=== PATIENT | female | born 1990 | race Caucasian/White ===

== ENCOUNTER 2023-09-25 14:17 | Emergency (ER) | payer OTHER ==
[2023-09-25 14:29] VITALS: BP 136/79; PULSE 106; RESP 18; TEMP 98; BMI 34.7
[2023-09-25 16:03] LABS: BASO % 0.3 % (0-2.0); EOS % 3.8 % (0-4.5); HEMATOCRIT 38.2 % (32.4-45.2); HEMOGLOBIN 12.8 GM/dL (10.7-15.3); LYMPH % 18.7 % (8-40); MCH 29.6 pg (25.7-33.7); MCHC 33.4 g/dl (32.0-36.0); MEAN CELL VOLUME 88.5 fl (80-96); MEAN PLT VOLUME 7.5 fl (7.5-11.1); MONO % 6.8 % (3.8-10.2); NEUT % 70.4 % (42.8-82.8); PH,URINE 6.5 (5.0-8.0); PLATELET COUNT 332 10^3/uL (134-434); RBC 4.32 M/mm3 (3.60-5.2); RDW 13.2 % (11.6-15.6); URINE APPEARANCE CLEAR; URINE BILIRUBIN NEGATIVE (NEGATIVE); URINE COLOR YELLOW; URINE GLUCOSE (UA) 3+ (NEGATIVE); URINE KETONE TRACE (NEGATIVE); URINE LEUK ESTERASE NEGATIVE (NEGATIVE); URINE NITRITE NEGATIVE (NEGATIVE); URINE PROTEIN NEGATIVE (NEGATIVE); WHITE BLOOD COUNT 11.7 K/mm3 (4.0-10.0)
[2023-09-25 16:15] LABS: POTASSIUM 4.1 mmol/L (3.5-5.1)
[2023-09-25 16:18] LABS: CALCIUM 8.7 mg/dL (8.5-10.1)
[2023-09-25 16:19] LABS: ALBUMIN 3.2 g/dl (3.4-5.0); BLOOD UREA NITROGEN 9.3 mg/dL (7-18)
[2023-09-25 16:22] LABS: CREATININE 0.9 mg/dL (0.55-1.3)
[2023-09-25 16:24] LABS: BILIRUBIN,TOTAL 0.2 mg/dL (0.2-1); TOT PROT 6.9 g/dl (6.4-8.2)
[2023-09-25] MEDS: SODIUM CHLORIDE 0.9% 500 ML INFUS.BAG IV ONE (16:52)
== END 2023-09-25 17:25 | disposition home or self-care (01) ==
LOC: JER 14:17
DX: O46.92 Antepartum hemorrhage, unspecified, second trimester (principal); Z3A.20 20 weeks gestation of pregnancy
CPT/HCPCS: 36415; 76815-TC; 80053; 81003; 84702; 85025; 86850; 86900; 86901; 87086; 99284-25

== ENCOUNTER 2024-01-22 15:55 | Inpatient (IN) | payer OTHER ==
[2024-01-22 16:42] LABS: BASO % 0.7 % (0-2.0); EOS % 1.9 % (0-4.5); HEMATOCRIT 38.6 % (32.4-45.2); HEMOGLOBIN 13.1 GM/dL (10.7-15.3); LYMPH % 27.1 % (8-40); MCH 30.6 pg (25.7-33.7); MCHC 33.9 g/dl (32.0-36.0); MEAN CELL VOLUME 90.3 fl (80-96); MEAN PLT VOLUME 8.8 fl (7.5-11.1); MONO % 9.5 % (3.8-10.2); NEUT % 60.8 % (42.8-82.8); PLATELET COUNT 191 10^3/uL (134-434); RBC 4.27 M/mm3 (3.60-5.2); RDW 13.6 % (11.6-15.6)
[2024-01-22 16:50] LABS: INR 0.97 (0.83-1.09)
[2024-01-22 16:53] LABS: ACTIVATED PTT 28.5 SECONDS (25.2-36.5)
[2024-01-22 17:11] LABS: ALBUMIN 2.6 g/dl (3.4-5.0); CALCIUM 8.5 mg/dL (8.5-10.1)
[2024-01-22 17:12] LABS: BLOOD UREA NITROGEN 14.3 mg/dL (7-18)
[2024-01-22 17:15] LABS: CREATININE 0.9 mg/dL (0.55-1.3)
[2024-01-22 17:16] LABS: TOT PROT 5.9 g/dl (6.4-8.2)
[2024-01-22 17:23] LABS: N-TERMINAL BNP 117.8 pg/ml (5-125)
[2024-01-22 17:51] LABS: URIC ACID 4.6 mg/dL (2.6-7.2)
[2024-01-22 17:52] LABS: EPI CELLS 24 /uL (0-25.1); HYALINE CASTS 0 /uL (0-3.1); PH,URINE 6.5 (5.0-8.0); URINE APPEARANCE CLEAR; URINE BACTERIA 239 /uL (0-1359); URINE BILIRUBIN NEGATIVE (NEGATIVE); URINE COLOR YELLOW; URINE GLUCOSE (UA) NEGATIVE (NEGATIVE); URINE KETONE NEGATIVE (NEGATIVE); URINE LEUK ESTERASE NEGATIVE (NEGATIVE); URINE NITRITE NEGATIVE (NEGATIVE); URINE PROTEIN 1+ (NEGATIVE); URINE RBC 4 /uL (0-23.9); URINE UROBILINOGEN 0.2 mg/dL (0.2-1.0); URINE WBC 11 /uL (0-25.8)
[2024-01-22 17:53] LABS: SGOT/AST 34 U/L (15-37); SGPT/ALT 26 U/L (13-61)
[2024-01-22 18:23] VITALS: BMI 41.8
[2024-01-22] MEDS ORDERED: MAGNESIUM 4GM/H20 - 4 GM/100 ML IVPB IVPB ONE (18:30)
[2024-01-22] MEDS: MAGNESIUM 4GM/H20 - 4 GM/100 ML IVPB IVPB ONE (18:35)
[2024-01-22] MEDS ORDERED: MAGNESIUM SULFATE 20GM/500ML - 20 GM/500 ML INFUS.BAG ONE (18:59)
[2024-01-22] MEDS: ELECTROLYTE-148 SOLN 1,000 ML IV SCH (19:05)
[2024-01-22] MEDS: MAGNESIUM SULFATE 20GM/500ML - 20 GM/500 ML INFUS.BAG IVPB SCH (19:05)
[2024-01-22] MEDS ORDERED: LABETALOL HCL 100 MG TABLET (FP) ONE (19:28)
[2024-01-22] MEDS ORDERED: LABETALOL HCL 200 MG TABLET (FP) ONE (19:28)
[2024-01-22] MEDS: LABETALOL HCL 100 MG TABLET (FP) PO ONE ×2 (19:30)
[2024-01-22] MEDS: DINOPROSTONE 10 MG VAGINAL SUPPOSITORY VG ONE (19:30)
[2024-01-22] MEDS ORDERED: ACETAMINOPHEN 325 MG TABLET (FP) ONE (21:28)
[2024-01-22] MEDS: ACETAMINOPHEN 325 MG TABLET (FP) PO ONE (21:30)
[2024-01-22] MEDS ORDERED: INSULIN (NOVOLOG) ASPART 100 UNITS/ML 10ML VIAL SQ SCH (22:00)
[2024-01-22] MEDS: MAGNESIUM SULFATE 20GM/500ML - 20 GM/500 ML INFUS.BAG IV SCH (22:00)
[2024-01-23] MEDS: MAGNESIUM SULFATE 20GM/500ML - 20 GM/500 ML INFUS.BAG IV SCH (00:30)
[2024-01-23] MEDS ORDERED: ACETAMINOPHEN 325 MG TABLET (FP) ONE (02:04)
[2024-01-23] MEDS: ACETAMINOPHEN 325 MG TABLET (FP) PO PRN (02:10)
[2024-01-23] MEDS ORDERED: LABETALOL HCL 200 MG TABLET (FP) ONE ×2 (08:19→22:01)
[2024-01-23] MEDS ORDERED: OXYTOCIN 30 UNITS in 0.9% NS 30 UNIT/500 ML INFUS.BAG IVPB ONE (08:20)
[2024-01-23] MEDS: LABETALOL HCL 200 MG TABLET (FP) PO SCH (08:25)
[2024-01-23] MEDS: OXYTOCIN 30 UNITS in 0.9% NS 30 UNIT/500 ML INFUS.BAG IVPB SCH (08:55)
[2024-01-23] MEDS: DEXTROSE 5%-LACTATED RINGERS 1,000 ML IV SCH (08:55)
[2024-01-23] MEDS ORDERED: morphine SULFATE/PF 1 MG/2 ML (2cc Syringe - QUVA) ONE (14:14)
[2024-01-23] MEDS ORDERED: ceFAZolin SODIUM 1 GM VIAL ONE (14:15)
[2024-01-23] MEDS ORDERED: ONDANSETRON 4 MG/2 ML VIAL ONE ×2 (14:15→21:33)
[2024-01-23] MEDS ORDERED: DEXAMETHASONE SOD PHOSPHATE 4 MG/1 ML VIAL ONE (14:15)
[2024-01-23] MEDS ORDERED: OXYTOCIN 10 UNITS/ML VIAL ONE (14:15)
[2024-01-23] MEDS ORDERED: PROPOFOL 20 ML ONE (14:16)
[2024-01-23] MEDS ORDERED: SUCCINYLCHOLINE CHLORIDE 200 MG/10 ML SYRINGE ONE (14:16)
[2024-01-23] MEDS ORDERED: BUPIVACAINE HCL/PF 0.5% (5MG/ML) 10 ML VIAL ONE (14:17)
[2024-01-23] MEDS ORDERED: FENTANYL CITRATE/PF 50 MCG/ML VIAL ONE (14:17)
[2024-01-23] MEDS ORDERED: OXYTOCIN 20 UNITS in 0.9% NS 20 UNIT/1,000 ML INFUS.BAG IV ONE ×2 (14:22→16:38)
[2024-01-23] MEDS ORDERED: PHENYLEPHRINE HCL 10 MG/1 ML SINGLE DOSE VIAL ONE (14:49)
[2024-01-23] MEDS ORDERED: MISOPROSTOL 200 MCG TABLET ONE (15:33)
[2024-01-23] MEDS: INSULIN (NOVOLOG) ASPART 100 UNITS/ML 10ML VIAL SQ SCH (15:43)
[2024-01-23 15:50] LABS: CORD HCO3 22.8 mmHg (20-29); CORD PCO2 47.3 mmHg (30-78); CORD pH 7.301 (7.14-7.44)
[2024-01-23 15:53] LABS: CORD HCO3 25.5 mmHg (20-29); CORD PCO2 60.1 mmHg (30-78); CORD pH 7.246 (7.14-7.44)
[2024-01-23] MEDS: OXYTOCIN 20 UNITS in 0.9% NS 20 UNIT/1,000 ML INFUS.BAG IV SCH (16:25)
[2024-01-23] MEDS ORDERED: DIPHENOXYLATE 2.5/ATROPINE.025 1 COMBO TABLET PO PRN (16:38)
[2024-01-23] MEDS: CARBOPROST TROMETHAMINE 250 MCG/ML AMPUL IM ONE (16:40)
[2024-01-23] MEDS ORDERED: METHYLERGONOVINE MALEATE 0.2 MG/1 ML AMP IM PRN (16:47)
[2024-01-23] MEDS ORDERED: SIMETHICONE 80 MG TAB.CHEW (FP) PO PRN (16:47)
[2024-01-23] MEDS: TRANEXAMIC ACID 1000 MG/10 ML VIAL IVPUSH ONE (16:53)
[2024-01-23 18:49] LABS: RETICULOCYTES 2.69 % (0.5-1.5)
[2024-01-23 18:54] LABS: BASO % 0.3 % (0-2.0); EOS % 0.2 % (0-4.5); HEMATOCRIT 37.6 % (32.4-45.2); HEMOGLOBIN 12.2 GM/dL (10.7-15.3); LYMPH % 9.1 % (8-40); MCH 30.2 pg (25.7-33.7); MCHC 32.6 g/dl (32.0-36.0); MEAN CELL VOLUME 92.7 fl (80-96); MEAN PLT VOLUME 9.6 fl (7.5-11.1); MONO % 1.7 % (3.8-10.2); NEUT % 88.7 % (42.8-82.8); PLATELET COUNT 178 10^3/uL (134-434); RBC 4.06 M/mm3 (3.60-5.2); RDW 13.7 % (11.6-15.6); WHITE BLOOD COUNT 15.7 K/mm3 (4.0-10.0)
[2024-01-23 18:58] LABS: POTASSIUM 4.3 mmol/L (3.5-5.1)
[2024-01-23 18:59] LABS: CALCIUM 8.1 mg/dL (8.5-10.1)
[2024-01-23 19:00] LABS: ALBUMIN 2.3 g/dl (3.4-5.0); BLOOD UREA NITROGEN 10.3 mg/dL (7-18)
[2024-01-23 19:02] LABS: URIC ACID 4.5 mg/dL (2.6-7.2)
[2024-01-23 19:03] LABS: CREATININE 0.6 mg/dL (0.55-1.3)
[2024-01-23 19:05] LABS: BILIRUBIN,TOTAL 0.5 mg/dL (0.2-1); TOT PROT 5.3 g/dl (6.4-8.2)
[2024-01-23] MEDS: CEFAZOLIN SODIUM 2 GM in DEXTROSE 5%-WATER 100 ML IVPB SCH (20:35)
[2024-01-23] MEDS ORDERED: CEFAZOLIN SODIUM 2 GM VIAL ONE (20:39)
[2024-01-23] MEDS: ONDANSETRON 4 MG/2 ML VIAL IVPUSH PRN (21:31)
[2024-01-23] MEDS: ACETAMINOPHEN 1000 MG/100 ML BAG IVPB PRN (23:20)
[2024-01-24] MEDS ORDERED: oxyCODONE HCL 5 MG TABLET PO PRN ×2 (04:47)
[2024-01-24 08:14] LABS: BASO % 0.1 % (0-2.0); HEMATOCRIT 28.1 % (32.4-45.2); HEMOGLOBIN 9.1 GM/dL (10.7-15.3); LYMPH % 15.8 % (8-40); MCH 29.9 pg (25.7-33.7); MCHC 32.4 g/dl (32.0-36.0); MEAN CELL VOLUME 92.4 fl (80-96); MEAN PLT VOLUME 8.6 fl (7.5-11.1); MONO % 9.9 % (3.8-10.2); NEUT % 74.2 % (42.8-82.8); PLATELET COUNT 174 10^3/uL (134-434); RBC 3.04 M/mm3 (3.60-5.2); RDW 13.8 % (11.6-15.6); WHITE BLOOD COUNT 19.4 K/mm3 (4.0-10.0)
[2024-01-24] MEDS ORDERED: BISACODYL 10 MG SUPP.RECT RC PRN (16:47)
[2024-01-25] MEDS: IBUPROFEN 600 MG TABLET (FP) PO PRN (06:10)
[2024-01-25] MEDS: ACETAMINOPHEN 325 MG TABLET (FP) PO PRN (21:29)
[2024-01-26 06:59] LABS: BASO % 0.5 % (0-2.0); EOS % 2.6 % (0-4.5); HEMATOCRIT 26.5 % (32.4-45.2); HEMOGLOBIN 8.8 GM/dL (10.7-15.3); LYMPH % 19.2 % (8-40); MCH 30.5 pg (25.7-33.7); MCHC 33.1 g/dl (32.0-36.0); MEAN CELL VOLUME 92.4 fl (80-96); MONO % 8.2 % (3.8-10.2); NEUT % 69.5 % (42.8-82.8); PLATELET COUNT 209 10^3/uL (134-434); RBC 2.87 M/mm3 (3.60-5.2); WHITE BLOOD COUNT 12.2 K/mm3 (4.0-10.0)
[2024-01-26] MEDS: CEFAZOLIN 500 MG in DEXTROSE 5%-WATER - 50 ML IVPB SCH (07:07)
[2024-01-26 09:44] VITALS: BP 128/80; PULSE 90; RESP 19; TEMP 98.1
== END 2024-01-26 12:00 | disposition home or self-care (01) | DRG 540 ==
LOC: JER 15:55 → JLDR 17:05 → J3W 01-23 23:02
PROVIDERS: ADMIT Obstetrics & Gynecology; ATTEND Obstetrics & Gynecology
PROC: 3E0P7VZ Introduction of Hormone into Female Reproductive, Via Natural or Artificial Opening (ICD-10-PCS; 2024-01-22)
PROC: 10D00Z1 Extraction of Products of Conception, Low, Open Approach (ICD-10-PCS; principal; 2024-01-23)
DX: O14.14 Severe pre-eclampsia complicating childbirth (principal); O60.14X0 Preterm labor third trimester with preterm delivery third trimester, not applicable or unspecified; O99.214 Obesity complicating childbirth; O24.424 Gestational diabetes mellitus in childbirth, insulin controlled; O13.4 Gestational [pregnancy-induced] hypertension without significant proteinuria, complicating childbirth; O61.0 Failed medical induction of labor; O36.63X0 Maternal care for excessive fetal growth, third trimester, not applicable or unspecified; Z3A.36 36 weeks gestation of pregnancy; Z37.0 Single live birth
CPT/HCPCS: 36415; 36600; 80053; 81003; 82570; 82803; 82962; 82977; 83010; 83615; 83735; 83880; 84156; 84450; 84460; 84484; 84550; 85025; 85032; 85045; 85610; 85730; 86780; 86850; 86900; 86901; 87086; 88307-TC; 94010; 99285-25; J0131